=== PATIENT | male | born 1970 | race Caucasian/White ===

== ENCOUNTER 2017-05-14 07:46 | Day surgery (SDC) | payer BC ==
[~2017-05-14] VITALS: Ht 177.8 cm; Wt 85.3 kg
--- NOTE | ~2017-05-14 | OP ---
PATIENT NAME: SAMARA FLORES MEDICAL RECORD: [id number] :66 LOCATION:D.OPS ADMISSION DATE: SURGEON: RAMIREZ FRANCO MD DATE OF OPERATION: 05/14/2017 DATE OF OPERATION: 05/14/2017 PREOPERATIVE DIAGNOSES: 1. Umbilical hernia. 2. Bleeding hemorrhoids. POSTOPERATIVE DIAGNOSES: 1. Umbilical hernia. 2. Bleeding hemorrhoids. PROCEDURES: 1. Umbilical hernia repair without mesh. 2. Anal exam under anesthesia. SURGEON: Ramirez Franco MD REPORT OF PROCEDURE: The patient's abdomen was prepped and draped in sterile fashion. A semicircular incision was made on the inferior aspect of the umbilicus. Electrocautery was used to dissect through the subcutaneous tissues. We then came around the umbilical stalk and the indwelling hernia sac. The hernia sac was dissected free and released all the way down to the fascia edges. The hernia contents were all fatty in nature and these were pushed back down into the abdominal cavity. The actual hernia defect in the fascia was approximately 1.2 cm in greatest diameter. This was closed longitudinally with interrupted 0 Prolenes times 4. The wound was then irrigated out with normal saline and care was taken to make sure there was no sign of any bleeding. The subcutaneous tissues were reapproximated with interrupted 3-0 Vicryl and the umbilicus was tacked down to the fascia using a single interrupted 3-0 Vicryl. The skin was then closed with running subcutaneous 5-0 Monocryl and infused with 10 mL of 0.25% Marcaine plain. After this wound was dressed appropriately, then the patient was placed in lithotomy position and anal exam under anesthesia was performed with a Hill-Nair retractors, the patient had no sign of any enlarged internal or external hemorrhoids. The patient did have very delicate tissue around the anal sphincter and with manipulation, this began to bleed and tear. We did a 360-degree inspection and once we decided that there was no need for any surgical intervention, then the case was concluded. COMPLICATIONS: None. CONDITION: Stable. ANESTHESIA: General endotracheal and local. BLOOD LOSS: Minimal. TRANSINT:[id number] Voice Confirmation ID: [id number] DOCUMENT ID: [id number] OPERATIVE REPORT [id number] SAMARA FLORES RAMIREZ FRANCO MD at 0956 CC: PERFECTO HOLLAND [id number] DICTATION DATE: 05/14/17 1118 SUPERINTENDENT COMPRESSOR STATIONS: 05/14/17 1232 [facility] 05/14/17 [id number] [place] [id number]
[~2017-05-14 07:46] MED LIST: FISH OIL 1,0001 CA1 PO; MULTI-DAY VITAM1 TAB PO; OS-CAL500 MG PO; POTASSIUM99 M1 PO
[2017-05-14 08:43] LABS: CALC OSMOLALITY 280 mosm/kg (275-300); CALCIUM 9.3 mg/dL (8.5-10.1); CHLORIDE - SERUM 104 mmol/L (98-107); CREATININE - SERUM 0.9 mg/dL (0.6-1.3); GLUCOSE 104 mg/dL (74-106); POTASSIUM - SERUM 4.3 mmol/L (3.5-5.1); SODIUM 139 mmol/L (136-145); UREA NITROGEN 21 mg/dL (7-18); eGFR NON AFRICAN AMERICAN > 90 mL/min (90-120)
[2017-05-14 08:45] VITALS: BP 134/82; Ht 177.8 cm; Wt 85.3 kg
[2017-05-14 08:45] LABS: BASOPHILS 0.2 % (0-2); EOSINOPHILS 1.4 % (0-7); HEMATOCRIT 40.9 % (42.0-54.0); HEMOGLOBIN 14.3 g/dL (13.5-17.5); IMMATURE GRANULOCYTES 0.2 % (0-5); MCH 30.9 pg (26.0-34.0); MCV 88.3 fL (80.0-100.0); MEAN PLATELET VOLUME 10.3 fL (7.4-10.4); MONOCYTES 6.9 % (2-11); NEUTROPHILS 51.3 % (40-80); PLATELET COUNT 181 10x3/uL (130-400); RBC 4.63 10x6/uL (4.20-6.10); WBC 5.2 10x3/uL (4.8-10.8)
[2017-05-14] MEDS ORDERED: HYDROCODONE-APA1 TAB PO (11:13)
== END 2017-05-14 13:20 | disposition home or self-care (01) ==
LOC: D.OPS 07:46
PROVIDERS: Surgery
DX: K42.9 Umbilical hernia without obstruction or gangrene (principal); K64.8 Other hemorrhoids; Z01.812 Encounter for preprocedural laboratory examination